=== PATIENT | female | born 1945 | race Caucasian/White ===

== ENCOUNTER 2025-03-31 13:48 | Emergency (ER) | payer OTHER ==
[2025-03-31 13:57] VITALS: PULSE 65; BMI 18.3
[2025-03-31] MEDS ORDERED: METOCLOPRAMIDE HCL INJECTION 10 MG/2 ML VIAL ONE (14:55)
[2025-03-31] MEDS ORDERED: ONDANSETRON 4 MG/2 ML VIAL ONE (14:55)
[2025-03-31] MEDS: METOCLOPRAMIDE HCL INJECTION 10 MG/2 ML VIAL IVPB ONE (15:06)
[2025-03-31] MEDS: SODIUM CHLORIDE 0.9% 500 ML INFUS.BAG IV ONE ×2 (15:06)
[2025-03-31] MEDS: ONDANSETRON 4 MG/2 ML VIAL IVPUSH ONE (15:06)
[2025-03-31 15:22] LABS: POTASSIUM 5.5 mmol/L (3.5-5.1)
[2025-03-31 15:24] LABS: CALCIUM 9.7 mg/dL (8.5-10.1)
[2025-03-31 15:25] LABS: ALBUMIN 3.8 g/dl (3.4-5.0); BLOOD UREA NITROGEN 20.2 mg/dL (7-18); MAGNESIUM 2.1 mg/dL (1.8-2.4)
[2025-03-31 15:28] LABS: CREATININE 0.7 mg/dL (0.55-1.3)
[2025-03-31 15:29] LABS: BILIRUBIN,TOTAL 0.3 mg/dL (0.2-1)
[2025-03-31 15:30] LABS: TOT PROT 7.7 g/dl (6.4-8.2)
[2025-03-31 15:35] LABS: ABSOLUTE IMMATURE GRANULOCYTES 0.01 x10^3/uL (0.0-0.031); BASOPHILS # 0.04 x10^3/uL (0.01-0.08); EOSINOPHIL % 0.8 % (0.7-5.8); EOSINOPHILS # 0.05 x10^3/uL (0.04-0.36); HEMATOCRIT 32.8 % (34.1-44.9); HEMOGLOBIN 10.3 g/dL (11.2-15.7); MCHC 31.4 g/dl (32.2-35.5); MEAN PLT VOLUME 11.2 fl (9.4-12.3); MONOCYTE # 0.45 x10^3/uL (0.24-0.86); MONOCYTE % 7.6 % (4.7-12.5); PLATELET COUNT 222 x10^3/uL (182-369); RDW 15.7 % (12.4-16.6)
[2025-03-31 15:53] LABS: ALBUMIN 3.5 g/dl (3.4-5.0); CALCIUM 9.5 mg/dL (8.5-10.1)
[2025-03-31 15:54] LABS: BLOOD UREA NITROGEN 19.9 mg/dL (7-18)
[2025-03-31 15:57] LABS: CREATININE 0.8 mg/dL (0.55-1.3)
[2025-03-31 15:58] LABS: BILIRUBIN,TOTAL 0.3 mg/dL (0.2-1); TOT PROT 7.4 g/dl (6.4-8.2)
[2025-03-31 17:09] LABS: URINE APPEARANCE CLEAR; URINE BILIRUBIN NEGATIVE (NEGATIVE); URINE COLOR YELLOW; URINE GLUCOSE (UA) NEGATIVE (NEGATIVE); URINE KETONE NEGATIVE (NEGATIVE); URINE LEUK ESTERASE NEGATIVE (NEGATIVE); URINE NITRITE NEGATIVE (NEGATIVE); URINE PROTEIN NEGATIVE (NEGATIVE); URINE UROBILINOGEN 0.2 mg/dL (0.2-1.0)
[2025-03-31 17:23] LABS: POTASSIUM 4.1 mmol/L (3.5-5.1)
[2025-03-31 17:25] LABS: BLOOD UREA NITROGEN 17.2 mg/dL (7-18); CALCIUM 9.3 mg/dL (8.5-10.1)
[2025-03-31 17:29] LABS: CREATININE 0.6 mg/dL (0.55-1.3)
[2025-03-31 17:33] VITALS: BP 136/73; RESP 20; TEMP 98.2
== END 2025-03-31 17:51 | disposition home or self-care (01) ==
LOC: JER 13:48
PROC: 3E033GC Introduction of Other Therapeutic Substance into Peripheral Vein, Percutaneous Approach (ICD-10-PCS; principal; 2025-03-31)
PROC: 3E033GC Introduction of Other Therapeutic Substance into Peripheral Vein, Percutaneous Approach (ICD-10-PCS; 2025-03-31)
DX: R42 Dizziness and giddiness (principal); R11.0 Nausea; R19.7 Diarrhea, unspecified
CPT/HCPCS: 0241U-QW; 36415; 70450-TC; 70496-TC; 70498-TC; 71046-TC-FY; 80048; 80053; 81003; 82962; 83735; 84484; 85025; 87086; 93005; 93010; 99285-25